=== PATIENT | male | born 1980 | race Caucasian/White ===

== ENCOUNTER 2017-08-17 18:34 | Emergency (ER) | payer BC ==
[~2017-08-17] VITALS: Ht 185.4 cm; Wt 101.6 kg
[~2017-08-17 18:34] MED LIST: LISINOPRIL 10MG10 MG PO; PROTONIX 40MG T40 MG PO; TESSALON PERLE100 MG PO; VIBRAMYCIN 100100 MG PO
--- OUTSIDE RECORDS SUMMARY | 2017-08-17 18:39 | External Medical Summary Rpt | CCD ---
Author Author [employer] Organization [employer] Address Unknown Phone Unavailable Purpose Continuity of Care Document - through 2016
--- OUTSIDE RECORDS SUMMARY | 2017-08-17 18:39 | External Medical Summary Rpt | CCD ---
Author Author , MICHAEL Organization MICHAEL Address Unknown Phone [email or web address] Immunization Name Date Rout CVX Reac Dose Comm Prov Is Faci e tion ent ider Refu lity Give sed n Hep 09-0 43 999 Hist H109 No H109 B, 6-20 oric adul 12 al t Info rmat ion - Sour ce Unsp ecif ied Hep 03-2 43 999 Hist H109 No H109 B, 2-20 oric adul 12 al t Info rmat ion - Sour ce Unsp ecif ied Tdap 02-2 115 999 Hist H149 No H149 , 2-20 oric Adso 07 al rbed Info rmat ion - Sour ce Unsp ecif ied
--- OUTSIDE RECORDS SUMMARY | 2017-08-17 18:39 | External Medical Summary Rpt | CCD ---
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
--- OUTSIDE RECORDS SUMMARY | 2017-08-17 18:39 | External Medical Summary Rpt | CCD ---
Author Author , MICHAEL Organization MICHAEL Address Unknown Phone [email or web address] Immunization Name Date Rout CVX Reac Dose [...]
--- OUTSIDE RECORDS SUMMARY | 2017-08-17 18:39 | External Medical Summary Rpt | CCD ---
Author Author , MICHAEL RODRIGUEZ Address Unknown Phone [email or web address] Purpose Continuity of Care Document - 01-21-2017 [...]
[2017-08-17] MEDS ORDERED: FLONASE ALLERG9.9 ML NS (19:04)
[2017-08-17] MEDS ORDERED: ZITHROMAX Z-PA250 M2 PO (19:04)
--- NOTE | 2017-08-17 19:05 | Urgent Treatment Center Report ---
History of Present Issue Date/Time Seen by Provider 08/17/17 1901 Visit Reason Pt arrived:Walked Presenting Problem:PT C/O SORE THROAT, BODY ACHES, HEAD ACHE, CONGESTION, PRODUCTIVE COUGH WITH GREEN MUCOUS. Location if Accident: Onset of symptoms date/time:/ or onset unknown for:MEDICAL HX UNKNOWN Have you (or family members/close friends) recently traveled outside the [place]? N If Yes, where/when: Have you had exposure to infectious disease within the past month? TB? Other? Specify: Source patient, RN notes reviewed Exam Limitations no limitations Comment 37-year-old male presents today for nasal congestion, coughing up yellow sputum, body aches, sore throat, and low-grade fever. Denies sick contacts ALLERGIES Coded Allergies: MDX - Penicillin (Penicillin) (09/11/08) Converted from Drug Class Allergy: Penicillins Converted from Ingredient Allergy: Penicillins MDX - Penicillin V (From Penicillin V Potassium) (09/11/08) Converted from Generic Allergy: Penicillin V Potassium Home Medications Active Scripts LISINOPRIL (Lisinopril) 10 MG PO DAILY #30 TAB Prov: 01/24/15 History Medical History General CAD? No Angina: No OR: No Hypertension? Yes Hyperlipidemia? No CHF? No DVT? No PE? No COPD? No Asthma? No Anemia? No GERD? No Gastric ulcers? No GI Bleed? No Hernia? No Thyroid Problems? No Hypothyroidism? No CVA? No Seizures? No Diabetes? No Renal Insuffiency? No UTI? No Stones? No BPH? No GB Disease: No Nephritic Syndrome? No Asplenia? No Hepatitis? No Sickle Cell Disease? No Arthritis? No Migraines? No Cataracts? No Glaucoma? No MRSA? No HIV? No TB? No Anxiety? No Depression? No Cancer? No More? No Immunization HX DT/Tetanus 1-4 YRS Surgical Hx Previous Surgery?Y APPENDECTOMY Social History Smoking Hx Smoker: Never Smoker Tobacco: No Packs/day 1 1/2 - 2 Packs Alcohol Alcohol: No Review of Systems All Other Systems Reviewed and Negative ENT see HPI, nose discharge, nose congestion. Respiratory see HPI, cough Physical Exam Vital Signs Vital Signs Date Time Temp Pulse Resp B/P Pulse O2 O2 Flow FiO2 Ox Delivery Rate 08/17 1846 98.2 90 18 132/94 99 - WBC >12,000 or <4,000 or 10% bands? 2 or more SIRS Criteria Met? B/P:132/94 MAP:106 Creatinine >2.0? UA output<0.5ml/kg/hr for 2 hrs? Platelet count >100,000? Lactate >2.0mmol/1? INR >1.2 or PTT > than 60 sec? Evidence of Organ Dysfunction? Provider documented clinical suspician of infection? Sepsis Criteria Count: 1 Sepsis Risk: General Appearance normal appearance, no apparent distress Ear, Nose, Throat hearing grossly normal, sinus pain/drainage, nasal congestion, pharyngeal erythema Respiratory Status Yes: trachea midline, chest symmetrical, non tender chest. No: respiratory distress. Lung Sounds bilateral: normal breath sounds, lungs clear. Cardiovascular normal exam, regular rate/rhythm Neurologic alert, normal exam, oriented x 3 Medical Decision Making LABS/Meds/Orders Pt receiving controlled substance in ED? No Results/Orders Orders Procedure Date/time Status [facility] FLU A,B 08/17 185 Active Departure Departure Time of Disposition 1902 Disposition DC Home or Self Care(routine) Clinical Impression Primary Impression: Acute non-recurrent maxillary sinusitis Condition STABLE Referrals Pj Cortes MD (Family) Patient Instructions Sinusitis Additional Instructions Tylenol or ibuprofen as needed for pain or fever. Medications as ordered Follow-up primary care this week Increase fluids Symptoms worsen or do not improve return or be seen in the ER Discharge Counseling Counseled pt/family regarding diagnosis, medications/RX, home care, follow up needs Prescriptions Current Visit Scripts Azithromycin (Zithromax) 250 MG PO DAILY #6 TAB USE DIRECTED. Fluticasone Propionate (Flonase Allergy Relief) 9.9 ML NS DAILY 14 Days 1 spray each nostril once a day at 1905
[2017-08-17 19:09] VITALS: BP 132/94
== END 2017-08-17 19:09 | disposition home or self-care (01) ==
LOC: UTC 18:34
DX: J01.00 Acute maxillary sinusitis, unspecified (principal); I10 Essential (primary) hypertension; Z88.0 Allergy status to penicillin